=== PATIENT | female | born 1975 | race Two or more races ===

== ENCOUNTER 2019-09-17 20:58 | Emergency (ER) | payer SELFPAY ==
[~2019-09-17] VITALS: Ht 152.4 cm; Wt 65.0 kg
[2019-09-17 22:05] VITALS: BP 131/68
--- NOTE | 2019-09-17 22:24 | PHYS DOC ---
General Adult EDM: Chief Complaint: SKIN PROBLEM HPI: HPI: Patient is a 43 year old female who presents with complaint of diffuse rash, all over her body that has been present for the last month. Patient states the rash continues to spread and it is very itchy. She denies any shortness of breath or fever. [] Review of Systems: Review of Systems: Constitutional: Denies fever or chills. [] Respiratory: Denies cough or shortness of breath. [] Cardiovascular: Denies chest pain or edema. [] Integument: Complains of rash. [] Neurologic: Denies headache, focal weakness or sensory changes. [] Heart Score: Risk Factors: Risk Factors: DM, Current or recent (<one month) smoker, HTN, HLP, family history of CAD, obesity. Risk Scores: Score 0 - 3: 2.5% MACE over next 6 weeks - Discharge Home Score 4 - 6: 20.3% MACE over next 6 weeks - Admit for Clinical Observation Score 7 - 10: 72.7% MACE over next 6 weeks - Early Invasive Strategies Allergies: Allergies: Allergies Coded Allergies Type Severity Reaction Last Updated Verified No Known Drug Allergies 09/17/19 No Physical Exam: PE: Constitutional: Well developed, well nourished, no acute distress, non-toxic appearance. [] Cardiovascular: Regular rate and rhythm [] Lungs & Thorax: Bilateral breath sounds clear to auscultation [] Skin: There is a diffuse papular rash, primarily to the extremities, and affecting the intertriginous bases of the trunk. [] Extremities: No tenderness, no cyanosis, no clubbing, ROM intact, no edema. [] EKG: EKG: [] Radiology/Procedures: Radiology/Procedures: [] Course & Med Decision Making: Course & Med Decision Making Pertinent Labs and Imaging studies reviewed. (See chart for details) [] Dragon Disclaimer: Dragon Disclaimer: This electronic medical record was generated, in whole or in part, using a voice recognition dictation system. Departure Departure Impression: Primary Impression: Scabies Disposition: 01 HOME, SELF-CARE Condition: STABLE Referrals: NO PCP (PCP) Patient Instructions: Scabies Scripts Methylprednisolone (MEDROL) 4 Mg Tab.ds.pk 1 PKG PO UD, #1 PKG Prov: DULCE MARIA ZAMUDIO Jr. DO 09/17/19 Permethrin (PERMETHRIN) 60 Gm Cream..g. 1 DAGOBERTO TP ONCE, #60 GM 1 Refill Apply to whole body except for face as directed by package insert and leave on for 8-12 hours. Wash off thoroughly in shower after time has elapsed. Prov: DULCE MARIA ZAMUDIO Jr. DO 09/17/19 Justicifation of Admission Dx: Justifications for Admission: Justification of Admission Dx: Comment: (Not applicable) DULCE MARIA ZAMUDIO Jr. DO Sep 17, 2019 22:24
[2019-09-17] MEDS ORDERED: METH4TAB2 PO (23:01)
[2019-09-17] MEDS ORDERED: PERM60CR12 TP (23:01)
== END 2019-09-17 23:37 | disposition home or self-care (01) ==
LOC: ER 20:58
DX: B86 Scabies (principal)
CPT/HCPCS: 99283